=== PATIENT | female | born 1970 | race Caucasian/White ===

== ENCOUNTER 2017-04-26 12:24 | Emergency (ER) | payer MEDICAID ==
--- NOTE | 2017-04-26 13:01 | CPEKG ---
Heart Rate: 73 RR Interval: 822 P-R Interval: 164 QRSD Interval: 82 QT Interval: 376 QTC Interval: 415 P [place]: 74 QRS [place]: 67 T Wave [place]: 23 EKG Severity - NORMAL ECG - EKG Impression: SINUS RHYTHM Electronically Signed By: Shannon Lambert 26-Apr-2017 16:04:35
[2017-04-26] MEDS ORDERED: ASPIRIN 81 MG CHEWABLE TAB PO ONE (13:13)
[2017-04-26] MEDS ORDERED: NS 500 ML IV ONE (13:13)
--- NOTE | 2017-04-26 13:13 | EDPHY ---
HPI/HX/ROS/PE/MDM Narrative: CHIEF COMPLAINT: Chest pain HISTORY OF PRESENT ILLNESS: The patient is a 46 y/o female with a history of asthma complaining of intermittent chest pain and general achiness onset yesterday. Last week she had a cold with sinus pressure, nasal congestion, and rhinorrhea and stayed home from work. Yesterday she developed some "dull achy" sternal chest pain that occasionally becomes a "jabby pain like being poked really hard with a finger" sometimes with inhalation or without any obvious trigger. She additionally has intermittent achiness on different sides of her chest and around her left paraspinous muscles. Last night she had one episode of jaw pain. She denies nausea, but says she sometimes feels uneasy when eating and has had some mild diarrhea. She generally feels fatigued as well. She looked up her symptoms online and is concerned she could be having a heart attack. Currently she feels "like a small cat is sitting on my chest." She had a normal stress test after similar symptoms in May 2015. No fever, chills, shortness of breath, palpitations, vomiting, urinary complaints, headache, lightheadedness. No history of hypertension, hypercholesterolemia, diabetes, gallbladder disease , personal or family history of cardiac disease at a young age, or history of blood clots. REVIEW OF SYSTEMS: Aside from elements discussed in the HPI, a comprehensive 10-point review of systems was reviewed and is negative. PAST MEDICAL HISTORY: Asthma SOCIAL HISTORY: Employed. Nonsmoker. Lives in [place]. . Prior medical records reviewed including ED visit May 2015 for chest pain. VITAL SIGNS: Reviewed by me GENERAL: Well-developed, well-nourished, resting comfortably in no respiratory distress. HEENT: Atraumatic. Eyes: No icterus, no injection. Mouth: moist mucous membranes. No erythema or lesions. Neck: supple with no adenopathy. LUNGS: Clear to auscultation bilaterally, no wheezes, rhonchi or rales. CARDIAC: Regular rate and rhythm, no rubs, murmurs or gallops. CHEST: Tenderness along left sternal border. ABDOMEN: Soft, mild epigastric tenderness, nondistended, bowel sounds normal. BACK: No CVA tenderness. EXTREMITIES: No trauma. No edema. Range of motion is normal throughout. NEURO: Alert and oriented, grossly nonfocal. SKIN: Warm and dry, no rash. PSYCHIATRIC: Normal mentation, no agitation. Portions of this note were transcribed by a medical billing coordinator. I personally performed a history, physical exam, medical decision making, and confirmed accuracy of information the transcribed note. ED Course: This is a healthy 46 y/o female with no cardiac risk factors and negative stress test 2 years ago who presents with a one-day history of waxing and waning chest pain and pressure with associated achiness at alternating places around her chest. She has reproducible pain upon palpation of her left sternal border and epigastrium. Symptoms seem more likely to represent costochondritis or reflux, but will need to rule out cardiac etiology as well. Plan for IV, labs , EKG, chest x-ray. 324mg PO aspirin and 500mL IV NS administered. The 12 lead EKG was interpreted by myself. Sinus rhythm rate 73. See hard copy and/or "tracemaster" electronic copy for interpretation. Chest x-ray negative. Labs unremarkable. Reevaluated patient and discussed work up. All my testing today is completely normal. She has no risk factors for cardiac disease and had a relatively recent stress test that was normal. Her pain could be costochondritis or other non- cardiac chest pain, but I cannot exclude cardiac etiology without provocative testing. 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 Patient heart score is 2 (moderately suspcious and age). I believe she is safe to discharge at this point (troponin is neg greater than 6 hours out) and will need close follow up. She is agreeable to that plan. MDM: After history and physical examination, the differential for chest pain was considered, including but not limited to, myocardial ischemia, acute coronary syndrome, pulmonary embolus, chest wall pain, pleural inflammation and pulmonary infectious causes. - Data Points Imaging Results: Impression: No acute pulmonary disease. Dictated By: Dylan Ortiz Imaging: I viewed and interpreted images myself Laboratory Results: Laboratory Results 04/26/17 13:07 04/26/17 13:07 Medications Given: Discontinued Medications Aspirin (Aspirin) 324 mg PO EDNOW ONE Stop: 04/26/17 13:14 Last Admin: 04/26/17 13:28 Dose: 324 mg Sodium Chloride (Ns) 500 mls @ 0 mls/hr IV EDNOW ONE; Wide Open PRN Reason: Protocol Stop: 04/26/17 13:14 Last Admin: 04/26/17 13:27 Dose: 500 mls General Time Seen by Provider: 04/26/17 13:00 Initial Vital Signs: Initial Vital Signs Temperature (C) 36.8 C 04/26/17 12:32 Heart Rate 88 04/26/17 12:32 Respiratory Rate 18 04/26/17 12:32 Blood Pressure 110/82 H 04/26/17 12:32 O2 Sat (%) 98 04/26/17 12:32 O2 Delivery Mode Room Air Allergies/Adverse Reactions: epinephrine [From Adrenalin] Allergy (Verified 04/26/17 12:31) erythromycin base [Erythromycin Base] Allergy (Verified 04/26/17 12:31) Home Medications: Medication Instructions Recorded Albuterol 06/27/15 Amitrip HCl/Chlordiazepoxide 06/27/15 Departure - Departure Disposition: Home, Routine, Self-Care Clinical Impression: Atypical chest pain Condition: Good Instructions: Chest Pain (ED), Costochondritis (ED) Additional Instructions: 1. Take 600mg ibuprofen every 6-8 hours for pain and inflammation for the next few days. 2. Follow up with your primary care provider or cook house supervisor this week. 3. Return to the ED for worsening of condition. Referrals: Jessika Figueredo MD [Primary Care Provider] - As per Instructions Report Scribed for: Shannon Lambert Report Scribed by: Rafia Gayle Date of Report: 04/26/17 Time of Report: 13:13
[2017-04-26 13:21] LABS: PLATELET COUNT 230 10^3/uL (150-400)
[2017-04-26 14:56] VITALS: BP 105/56; PULSE 85; RESP 16; TEMP 98.2; O2SAT 98
== END 2017-04-26 14:54 | disposition home or self-care (01) ==
DX: R07.89 Other chest pain (principal); J45.909 Unspecified asthma, uncomplicated; E86.9 Volume depletion, unspecified

== ENCOUNTER → 2017-05-24 | Outpatient (CLI) | payer MEDICAID | LOC: FIMAGING 15:20 | PROVIDERS: ATTEND Family Medicine | DX: R05 Cough (principal); R91.8 Other nonspecific abnormal finding of lung field ==